=== PATIENT | male | born 1960 | race Caucasian/White ===

== ENCOUNTER 2016-12-20 13:44 | Emergency (ER) | payer OTHER ==
[~2016-12-20] VITALS: Ht 179.1 cm; Wt 90.3 kg
[~2016-12-20 13:44] MED LIST: AMBIEN 10MG10 MG PO; BABY ASPIRIN CH81 MG PO; BACTRIM DS TAB1 EACH PO; BETAPACE80 MG PO; ELIQUIS5 M1 PO; GOOD SENSE ASPI81 M1 PO; KEFLEX500 M1 PO; MAGNESIUM OXID400 M1 PO; MAGNESIUM400 M1 PO; METOPROLOL SUC100 M1 PO; METOPROLOL SUCC50 M1 PO; METOPROLOL TART25 M1 PO; MULTAQ400 M1 PO; TOPROL XL 100100 MG PO; TOPROL XL50 MG PO
[2016-12-20 14:15] LABS: ABSOLUTE BASOPHIL COUNT 0 /CUMM (0.0-0.2); ABSOLUTE EOSINOPHIL COUNT 0.1 /CUMM (0.0-0.7); ABSOLUTE GRANULOCYTE CT 6.9 /CUMM (1.4-6.5); ABSOLUTE LYMPH COUNT 3.5 /CUMM (1.2-3.4); ABSOLUTE MONOCYTE COUNT 0.7 /CUMM (0.10-0.60); BASOPHIL % 0.1 % (0.0-2.0); EOSINOPHIL % 0.5 % (0-5); GRANULOCYTE % 61.9 % (42.2-75.2); HEMATOCRIT 47.4 % (42-52); MEAN CORPUSCULAR HGB 29.8 PG (27.0-31.0); MEAN CORPUSCULAR HGB CONC 33.7 G/DL (33.0-37.0); MEAN CORPUSCULAR VOLUME 88.4 FL (80.0-94.0); MEAN PLATELET VOLUME 8.1 FL (7.4-10.4); PLATELET COUNT 225 /CUMM (130-400); RBC DISTRIBUTION WIDTH 12.9 % (11.5-14.5); RED BLOOD CELL CT 5.35 /CUMM (4.70-6.10); WHITE BLOOD CELL COUNT 11.2 /CUMM (4.8-10.8)
--- NOTE | 2016-12-20 16:02 | ED CARDIAC/CP/PALPITATIONS ---
History of Present Illness General Chief Complaint: Palpitations Stated Complaint: STATES IN A-FIB Source: patient Exam Limitations: no limitations Vital Signs & Intake/Output Vital Signs & Intake/Output Vital Signs Date Time Temp Pulse Resp B/P B/P Pulse O2 O2 Flow FiO2 Mean Ox Delivery Rate 12/20 1917 97.8 96 18 142/89 97 Room Air 12/20 1804 98.6 76 18 135/76 98 Room Air 12/20 1626 97.8 100 20 144/90 97 Room Air 12/20 1359 98.7 122 18 122/83 96 Room Air Allergies Coded Allergies: NO KNOWN ALLERGIES (05/03/16) Reconcile Medications Aspirin (Ecotrin*) 81 MG TABLET.DR 1 TAB PO DAILY HEART/BLOOD (Reported) Magnesium Oxide (Magnesium) 500 MG CAPSULE 1 CAP PO DAILY SUPPLEMENT ( Reported) Metoprolol Tartrate 25 MG TABLET 1 TAB PO BID HEART/BP (Reported) Triage Note: PT STATES THAT HE HAD CARDIAC ABLASION IN AUGUST DUE TO AFIB, STATES THAT FOR THE PAST 30 MINUTES HE FEELS LIKE HIS HEART IS GOING TO JUMP OUT OF HIS CHEST , DENIES CP. SINUS TACH WITH RUN OF PVC'S ON EKG. DENIES SOB Triage Nurses Notes Reviewed? yes Onset: Abrupt Duration: hour(s): (FEW) Timing: multiple episodes today Location: central Activities at Onset: ALCOHOL USE Aspirin Today: no aspirin today Associated Symptoms: CHEST TIGHTNESS HPI: This is a 56-year-old male with history of proximal A. fib status post cardioversion in August by Dr. Jensen who presents to the ER for chief complaint of thinking he might of been in A. fib this point. He admits to drinking 20 beers over the weekend. He states sometimes taking alcohol with him into A. fib. No chest pain but feels tight. He is also monitor for a thoracic aortic aneurysm. Denies hearing short of breath. States he feels better now than when he came into the hospital. Denies any history of alcohol withdrawal symptoms. Past History Travel History Traveled to [place] past 21 day No Medical History Any Pertinent Medical History? 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 No Review of Systems Review of Systems Constitutional: Denies: chills, fever. EENTM: Reports: no symptoms. Respiratory: Denies: cough, short of breath, sputum production. Cardiovascular: Reports: palpitations. Denies: chest pain, peripheral edema. GI: Denies: abdominal pain, diarrhea, nausea, vomiting. Genitourinary: Denies: discharge, dysuria. Musculoskeletal: Reports: no symptoms. Skin: Reports: no symptoms. Neurological/Psychological: Reports: no symptoms. Hematologic/Endocrine: Denies: bruising, bleeding, polyuria, polydipsia. Immunologic/Allergic: Denies: splenectomy. All Other Systems: Reviewed and Negative Physical Exam Physical Exam General Appearance: well developed/nourished, alert, awake, anxious, mild distress Head: atraumatic, normal appearance Eyes: Bilateral: normal appearance, PERRL, EOMI. Ears, Nose, Throat: normal pharynx, hearing grossly normal Neck: normal inspection, supple Respiratory: normal breath sounds, chest non-tender, no respiratory distress Cardiovascular: tachycardia Peripheral Pulses: 2+ radial (R), 2+ radial (L) Gastrointestinal: normal bowel sounds, soft, non-tender Extremities: normal inspection, normal capillary refill, normal range of motion, calf tenderness Neurologic/Psych: no motor/sensory deficits, awake, alert, oriented x 3 Skin: intact, normal color, warm/dry Core Measures ACS in differential dx? Yes ASA ordered for poss ACS? No-ACS ruled out Severe Sepsis Present: No Septic Shock Present: No Progress Differential Diagnosis: atrial fibrillation, pneumothorax, pulmonary embolism, ALCOHOL ABUSE, ALCOHOL WITHDRAWAL Plan of Care: Orders Procedure Date/time Status URINE DRUGS OF ABUSE 12/20 1702 Complete URINALYSIS 12/20 1702 Complete TROPONIN LEVEL 12/20 1403 Complete COMPREHENSIVE METABOLIC PANEL 12/20 1403 Complete CBC WITHOUT DIFFERENTIAL 12/20 1403 Complete EKG 12/20 1345 Active Laboratory Tests 12/20/16 1827: Urine Opiates Screen < 100.00, Methadone Screen < 40, Barbiturate Screen < 60, Ur Phencyclidine Scrn < 6.00, Amphetamines Screen < 100, U Benzodiazepines Scrn < 85, Urine Cocaine Screen < 50, Urine Cannabis Screen < 5.00, Urinalysis LIGHT H, Urine Color YEL, Urine Clarity CLEAR, Urine pH 5.5, Ur Specific Sylvester >= 1.030, Urine Protein TRACE H, Urine Ketones 15 H, Urine Nitrite NEG, Urine Bilirubin NEG, Urine Urobilinogen 0.2, Ur Leukocyte Esterase NEG, Ur Microscopic SEDIMENT EXAMINED, Urine RBC 1-3, Urine WBC RARE, Ur Epithelial Cells RARE, Hyaline Casts 1-3 H, Granular Casts 1-3 H, Urine Mucus FEW, Urine Hemoglobin TRACE-INTACT H, Urine Glucose NEG 12/20/16 1407: Anion Gap 17 H, Estimated GFR > 60, BUN/Creatinine Ratio 15.0, Glucose 87, Calcium 9.2, Total Bilirubin 0.7, AST 36, ALT 79 H, Alkaline Phosphatase 85, Troponin I < 0.01, Total Protein 8.2, Albumin 4.7, Globulin 3.5, Albumin/ Globulin Ratio 1.3, CBC w Diff NO MAN DIFF REQ, RBC 5.35, MCV 88.4, MCH 29.8, RDW 12.9, MPV 8.1, Gran % 61.9, Lymphocytes % 31.0, Monocytes % 6.5, Eosinophils % 0.5, Basophils % 0.1, Absolute Granulocytes 6.9 H, Absolute Lymphocytes 3.5 H, Absolute Monocytes 0.7 H, Absolute Eosinophils 0.1, Absolute Basophils 0, PUBS MCHC 33.7 PATIENT FEELING MUCH BETTER AFTER 2 L IVF. HR IN LOW 90'S. URINALYSIS AFTER FLUIDS NEGATIVE KETONES. NORMAL SP. NO AFIB ON MONITOR. PATIENT EDUCATED TO AVOID EXCESSIVE ALCOHOL INTAKE. PATIENT WILL FOLLOW UP WITH DR ELDER IN THE OFFICE. (BRYSON FALK,PRETTY) Diagnostic Imaging: Viewed by Me: Radiology Read. Discussed w/RAD: Radiology Read. CXR Impression: PATIENT: ROCIO BENEDICT PRESENT AGE: 56 PATIENT ACCOUNT NO: [id number] : 62 LOCATION: [facility] ORDERING PHYSICIAN: PRETTY MASSEY MD SERVICE DATE: 12/20/16 EXAM TYPE: RAD - XRY-PORTABLE CHEST XRAY EXAMINATION: XR PORTABLE CHEST CLINICAL INFORMATION: Chest tightness. Tachycardia. Evaluate mediastinum. COMPARISON: Chest x-ray 05/28/2016. TECHNIQUE : Portable frontal view of the chest was obtained. FINDINGS: The lungs are well- expanded and clear without focal airspace consolidation. No pleural effusions or pneumothoraces are identified. Cardiomediastinal contours are stable. Soft tissues are unremarkable. No acute osseous abnormality is identified. IMPRESSION : No acute pulmonary process. Cardiac mediastinal contours are stable relative to a prior chest x-ray dating back to 05/28/2016. There is a clinical concern for aortic dissection or aortic pathology, recommend correlation with a dedicated CTA of the chest. DICTATED BY: NIA DENNY MD DATE/TIME DICTATED: 12/20/161631 COATING ENGINEER:VEGA DATE/TIME TRANSCRIBED:12/20/161631 CONFIDENTIAL, DO NOT COPY WITHOUT APPROPRIATE AUTHORIZATION. <Electronically signed in Other Vendor System> SIGNED BY: NIA DENNY MD 12/20/161635 Initial ED EKG: SINUS TACHYCARDIA Rhythm Strip: SINUS TACHYCARDIA Departure Departure Disposition: HOME OR SELF CARE Condition: Stable Clinical Impression Primary Impression: Sinus tachycardia Secondary Impressions: Alcohol abuse Referrals: JERROD FALK PhD,LULÚ Merrill Additional Instructions: Continue your regularly prescribed medications. Please avoid excessive alcohol intake. Follow up with Dr. Elder in the office. Please return to the ER should he have any changing or worsening symptoms. Departure Forms: Customer Survey General Discharge Information Critical Care Note Critical Care Note Critical Care Time: non-applicable
--- NOTE | 2016-12-20 16:36 | RADIOLOGY REPORT ---
EXAMINATION: XR PORTABLE CHEST CLINICAL INFORMATION: Chest tightness. Tachycardia. Evaluate mediastinum. COMPARISON: Chest x-ray 05/28/2016. TECHNIQUE: Portable frontal view of the chest was obtained. FINDINGS: The lungs are well-expanded and clear without focal airspace consolidation. No pleural effusions or pneumothoraces are identified. Cardiomediastinal contours are stable. Soft tissues are unremarkable. No acute osseous abnormality is identified. IMPRESSION: No acute pulmonary process. Cardiac mediastinal contours are stable relative to a prior chest x-ray dating back to 05/28/2016. There is a clinical concern for aortic dissection or aortic pathology, recommend correlation with a dedicated CTA of the chest.
[2016-12-20] MEDS ORDERED: MAGNESIUM500 M2 PO (17:06)
[2016-12-20] MEDS ORDERED: ASPIRIN EC81 M1 PO (17:06)
[2016-12-20 19:17] VITALS: BP 142/89
== END 2016-12-20 19:18 ==
LOC: ERH 13:44
PROVIDERS: Emergency Medicine
DX: R00.0 Tachycardia, unspecified (principal); F10.10 Alcohol abuse, uncomplicated; R07.89 Other chest pain
CPT/HCPCS: 80307; 81001; 93005; 93010

== ENCOUNTER 2016-12-22 09:29 | Emergency (ER) | payer OTHER ==
[~2016-12-22] VITALS: Ht 177.8 cm; Wt 90.3 kg
[~2016-12-22 09:29] MED LIST changes: +ASPIRIN EC81 M1 PO; +MAGNESIUM500 M2 PO
--- NOTE | 2016-12-22 09:43 | ED CARDIAC/CP/PALPITATIONS ---
History of Present Illness General Chief Complaint: Palpitations Stated Complaint: ?AFIB Source: patient, family, old records Exam Limitations: no limitations Vital Signs & Intake/Output Vital Signs & Intake/Output Vital Signs Date Time Temp Pulse Resp B/P B/P Pulse O2 O2 Flow FiO2 Mean Ox Delivery Rate 12/22 1143 98.2 92 20 121/79 99 Room Air 12/22 1045 97.8 99 20 119/79 98 Room Air 12/22 0938 97.3 122 20 161/86 97 Room Air Allergies Coded Allergies: NO KNOWN ALLERGIES (05/03/16) Reconcile Medications Aspirin (Ecotrin*) 81 MG TABLET.DR 1 TAB PO DAILY HEART/BLOOD (Reported) Magnesium Oxide (Magnesium) 500 MG CAPSULE 1 CAP PO DAILY SUPPLEMENT ( Reported) Metoprolol Tartrate 25 MG TABLET 1 TAB PO BID HEART/BP (Reported) Triage Note: C/O RAPID HEART BEAT WITH ABDOMEN PULSATING X 15 MINUTES. STATES, "I THINK I AM GOING INTO AFIB". EKG DONE ON ARRIVAL. DENIES CHEST PAIN OR SOB. PT REPORTS HE HAD AN ABALATION PROCEDURE DONE THIS PAST AUGUST, NOT ON BLOOD THINNERS. Triage Nurses Notes Reviewed? yes Onset: Abrupt Duration: minute(s): (15), constant, continues in ED Timing: recent history Quality/Severity: moderate, severe HPI: 56 -year-old male comes into emergency room with complaints of feeling that he may be in A. fib again. He reports that for the past 15 minutes she's been having a racing heart and it feels irregular like and skipping beats. Patient can feel it in his abdomen but denies any chest pain or shortness of breath. Nothing seems to make the symptoms better or worse. Denies any other associated symptoms. (GISELLE BANUELOS) Past History Travel History Traveled to [place] past 21 day No Medical History Any Pertinent Medical History? 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 No (GISELLE BANUELOS) Review of Systems Review of Systems Constitutional: Reports: no symptoms. EENTM: Reports: no symptoms. Respiratory: Reports: no symptoms. Cardiovascular: Reports: see HPI. GI: Reports: no symptoms. Genitourinary: Reports: no symptoms. Musculoskeletal: Reports: no symptoms. Skin: Reports: no symptoms. Neurological/Psychological: Reports: no symptoms. Hematologic/Endocrine: Reports: no symptoms. Immunologic/Allergic: Reports: no symptoms. All Other Systems: Reviewed and Negative (GISELLE BANUELOS) Physical Exam Physical Exam General Appearance: well developed/nourished, alert, awake Head: atraumatic Eyes: Bilateral: normal appearance. Ears, Nose, Throat: normal ENT inspection, hearing grossly normal Neck: normal inspection Respiratory: normal breath sounds, no respiratory distress Cardiovascular: tachycardia (irregular) Gastrointestinal: soft, non-tender Back: normal inspection Extremities: normal inspection, normal range of motion, no edema Neurologic/Psych: awake, alert, oriented x 3, normal gait Skin: intact, normal color Core Measures ACS in differential dx? No Severe Sepsis Present: No Septic Shock Present: No (GISELLE BANUELOS) Progress Differential Diagnosis: AMI, aortic dissection, atrial fibrillation, cholecystitis, hyperkalemia, hypovolemia, hyperthyroid, hyperventilation, myocarditis, pancreatitis, pericarditis, pulmonary embolism, PUD/GERD, PVCs/PACs , unstable angina, V-fib/V-Tach, WPW syndrome Plan of Care: Orders Procedure Date/time Status Heart Healthy Diet 12/22 D Active EKG 12/22 0957 Active Add-on Test (ER Only) 12/22 0943 Active MAGNESIUM 12/23 939 Complete THYROID STIMULATING HORMONE 12/22 938 Complete TROPONIN LEVEL 12/22 938 Complete PARTIAL THROMBOPLASTIN TIME 12/22 938 Complete PROTHROMBIN TIME 12/22 938 Complete COMPREHENSIVE METABOLIC PANEL 12/22 938 Complete CBC WITHOUT DIFFERENTIAL 12/22 938 Complete EKG 12/22 0930 Active Laboratory Tests 12/22/16 0940: Anion Gap 11, Estimated GFR > 60, BUN/Creatinine Ratio 19.0, Glucose 134 H, Calcium 8.9, Magnesium 2.0, Total Bilirubin 0.8, AST 21, ALT 55, Alkaline Phosphatase 81, Troponin I < 0.01, Total Protein 7.5, Albumin 4.3, Globulin 3.2, Albumin/Globulin Ratio 1.3, TSH 1.500, PT 11.6, INR 1.11, APTT 36, CBC w Diff NO MAN DIFF REQ, RBC 5.05, MCV 88.0, MCH 30.0, RDW 12.5, MPV 8.0, Gran % 62.1, Lymphocytes % 30.8, Monocytes % 5.6, Eosinophils % 0.8, Basophils % 0.7, Absolute Granulocytes 4.6, Absolute Lymphocytes 2.3, Absolute Monocytes 0.4, Absolute Eosinophils 0.1, Absolute Basophils 0.1, PUBS MCHC 34.0 Initial ED EKG: rate (140), AFIB Repeat EKG: changed (NSR, rate 97) Comments: 12/22/2016 10:52:[address] Blank on the phone. Patient spontaneously converted back into normal sinus rhythm. Repeat EKG was performed. Dr. Blank wants to come in to evaluate the patient. Pepending on his evaluation. 12/22/2016 1:50:24 PM Patient is continuing to remain in normal sinus rhythm on the monitor. Patient was seen by Dr. Blank. He prescribed an antiarrhythmic for the patient. He will be discharged with no anticoagulants and will continue on 81 mg aspirin tablet. case discussed with dr park. (SARAH GOMESLOHRVILLE) Departure Departure Disposition: HOME OR SELF CARE Condition: Stable Clinical Impression Primary Impression: Paroxysmal a-fib Referrals: PATIENT HAS NO PRIMARY CARE DR (PCP/Family) Additional Instructions: Take medication that was prescribed to you by Dr. Blank. Follow-up with him in the office. Return if any other concerns/worsening of symptoms. Please go over all results of today's visit with your primary care doctor. Contact your primary care doctor to let them know you were here in the emergency room. There may be nonspecific findings which may not be related to your visit today here in the emergency room but may require further evaluation and chronic monitoring by your primary care doctor. If you had a laceration today the chance of foreign body always remains. You should follow-up with your primary care doctor for recheck in 3-5 days for a wound check. If you had an x-ray done there is a chance that a fracture could have been missed on initial read and you should follow-up with your primary care doctor for repeat x-rays if symptoms persist. If your blood pressure was elevated here in the emergency room please have rechecked by her primary care doctor within the next 48 hours by your primary care doctor. If you were prescribed a narcotic here in the emergency room or any type of controlled substances you're not allowed to drive while taking this medication or operate any type of heavy machinery. Narcotics can make you feel lightheaded dizziness nausea and can cause constipation. You may need to pick up worker a stool softener. Thank you for choosing [facility] emergency room. Please return to the emergency room immediately if you have any other concerns worsening of symptoms. 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 I have also reviewed all the pertinent lab results and diagnostic results. I agree with the findings and the plan of care as documented in the PA's/EXTRACTOR OPERATOR SOLVENT PROCESS's documentation. [] I have reviewed the ED Record and agree with the PA's/EXTRACTOR OPERATOR SOLVENT PROCESS's documentation. [] Additions or exceptions (if any) to the PAs/EXTRACTOR OPERATOR SOLVENT PROCESS's note and plan are summarized below: [] (RENITA FALK,ARTURO) Critical Care Note Critical Care Note Critical Care Time: non-applicable (GISELLE BANUELOS)
[2016-12-22 09:46] LABS: ABSOLUTE BASOPHIL COUNT 0.1 /CUMM (0.0-0.2); ABSOLUTE EOSINOPHIL COUNT 0.1 /CUMM (0.0-0.7); ABSOLUTE GRANULOCYTE CT 4.6 /CUMM (1.4-6.5); ABSOLUTE LYMPH COUNT 2.3 /CUMM (1.2-3.4); ABSOLUTE MONOCYTE COUNT 0.4 /CUMM (0.10-0.60); BASOPHIL % 0.7 % (0.0-2.0); EOSINOPHIL % 0.8 % (0-5); GRANULOCYTE % 62.1 % (42.2-75.2); HEMATOCRIT 44.4 % (42-52); PLATELET COUNT 193 /CUMM (130-400); RBC DISTRIBUTION WIDTH 12.5 % (11.5-14.5); RED BLOOD CELL CT 5.05 /CUMM (4.70-6.10); WHITE BLOOD CELL COUNT 7.4 /CUMM (4.8-10.8)
[2016-12-22 09:56] LABS: PT 11.6 SEC (9.4-12.5); PTT 36 SEC (25-37)
[2016-12-22 11:43] VITALS: BP 121/79
--- NOTE | 2016-12-22 12:25 | Cons- Cardiology ---
General Information and HPI Consulting Request Date of Consult: 12/22/16 Requested By: ER History of Present Illness: Kamar is a 56 year old male with history of hypertension and paroxysmal atrial fibrillation. Since 2013 he has had multiple episodes of atrial fibrillation with rapid ventricular rate depite attempts at medical therapy with bothe Sotolol and Multaq. In consideration of the above the patient recently underwent an atrial fibrillation ablation procedure. This took place in [facility], and since he was doing well, his Multaq was discontinued. Over the past week this patient has had two episodes of recurrent atrial fibrillation with rapid heart rate. In the ER he spontaneously converted back into a sinus rhythm. When in atrial fibrillation he feels palpitations with mild shortness of breath and lightheadedness. At baseline, this patient had frequent episodes of A. Fib of at least twice a month, if not more. The episodes typically last for about 30 minutes before spontaneously converting back into a NSR. Cardiac workup has included an echocardiogram showing an EF of 55% with impaired LV relaxation and trace MR and TR. The left atrial size is normal. The patient does have an mildly enlarged ascending aorta of 4.6cm by CT scan. A Holter monitor showed some brief runs of paroxysmal atrial fibrillation despite being on Sotolol. The episodes typically occur in the vamp seamer and tend to be short lived. He also demonstrated 171 ventricular ectopic beats and 39 supraventricular ectopic beats. This patient does carry a history of remote alcohol and cocaine abuse but these indiscretions were not related to this current event since he has not had either in multiple years. Allergies/Medications Allergies: Coded Allergies: NO KNOWN ALLERGIES (05/03/16) Home Med List: Aspirin (Ecotrin*) 81 MG TABLET.DR 1 TAB PO DAILY HEART/BLOOD (Reported) Magnesium Oxide (Magnesium) 500 MG CAPSULE 1 CAP PO DAILY SUPPLEMENT ( Reported) Metoprolol Tartrate 25 MG TABLET 1 TAB PO BID HEART/BP (Reported) Review of Systems Review of Systems: A twelve point review of systems is unremarkable. 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 [facility] Services at Home: None ETOH Use: denies use Exam & Diagnostic Data Vital Signs and I&O Vital Signs Date Time Temp Pulse Resp B/P B/P Pulse O2 O2 Flow FiO2 Mean Ox Delivery Rate 12/22 1143 98.2 92 20 121/79 99 Room Air 12/22 1045 97.8 99 20 119/79 98 Room Air 12/22 0938 97.3 122 20 161/86 97 Room Air Intake & Output 12/22 1600 12/22 0800 12/22 0000 12/21 1600 12/21 0800 12/21 0000 Intake Total 10 Output Total Balance 10 Intake, IV 10 Patient 199 lb Weight Weight Reported by Patient Measurement Method Physical Exam: General: WD/ WN male in NAD; alert and oriented x 3 HEENT: NC/ AT, PERRL, EOMI Neck: no JVD, no carotid bruit Heart: RRR w/o murmur Lungs: clear bilaterally ABdomen: soft, NT, +ve bowel sounds Extremities: no edema Assessment/Plan Assessment/Plan * This patient has recurrent, repeated episodes of atrial fibrillation with rapid heart rate since his Multaq medication was discontinued. We will restart Multaq at 400mg PO BID to help achieve better control. It is noted that this drug never gave perfect control in the past when he used it but hopefully this situation will be improved now that he is s/p his ablation. We will need to monitor him expectantly for this. The patient can feel his bouts of atrial fibrillation very well when they occur. He should remain on aspirin. He has also been advised to avoid alcohol. This patient can be discharged with follow up in the office planned in one month. Consult Acknowledgment - Thank you for your consult request.
== END 2016-12-22 12:17 ==
LOC: ERH 09:29
PROVIDERS: Physician Assistant Medical
DX: I48.0 Paroxysmal atrial fibrillation (principal)
CPT/HCPCS: 93005; 93010

== ENCOUNTER 2017-01-03 13:08 | Emergency (ER) | payer OTHER ==
[~2017-01-03] VITALS: Ht 177.8 cm; Wt 90.7 kg
[2017-01-03 13:41] LABS: ABSOLUTE BASOPHIL COUNT 0 /CUMM (0.0-0.2); ABSOLUTE EOSINOPHIL COUNT 0.1 /CUMM (0.0-0.7); ABSOLUTE GRANULOCYTE CT 4.8 /CUMM (1.4-6.5); ABSOLUTE MONOCYTE COUNT 0.5 /CUMM (0.10-0.60); BASOPHIL % 0.4 % (0.0-2.0); EOSINOPHIL % 1.7 % (0-5); GRANULOCYTE % 56.4 % (42.2-75.2); HEMATOCRIT 43.3 % (42-52); MEAN CORPUSCULAR HGB 30.2 PG (27.0-31.0); MEAN CORPUSCULAR HGB CONC 33.9 G/DL (33.0-37.0); MEAN CORPUSCULAR VOLUME 89.1 FL (80.0-94.0); MEAN PLATELET VOLUME 8.4 FL (7.4-10.4); PLATELET COUNT 204 /CUMM (130-400); RBC DISTRIBUTION WIDTH 12.9 % (11.5-14.5); RED BLOOD CELL CT 4.86 /CUMM (4.70-6.10); WHITE BLOOD CELL COUNT 8.5 /CUMM (4.8-10.8)
[2017-01-03 13:49] LABS: PT 11.3 SEC (9.4-12.5); PTT 34 SEC (25-37)
--- NOTE | 2017-01-03 14:41 | RADIOLOGY REPORT ---
EXAMINATION: XR CHEST CLINICAL INFORMATION: Palpitations. COMPARISON: Chest done on 12/20/2016. TECHNIQUE: 2 views of the chest were obtained. FINDINGS: Both lung villegas are symmetrically expanded and appear clear. The cardiomediastinal silhouette is within normal limits. There is no pleural effusion present. The visualized upper abdomen. No significant change since prior study. IMPRESSION: No acute cardiopulmonary disease.
[2017-01-03] MEDS ORDERED: MULTAQ400 M1 PO (15:44)
--- NOTE | 2017-01-03 16:13 | ED GENERAL ADULT ---
History of Present Illness General Chief Complaint: General Adult Stated Complaint: "I AM IN A. FIB" Source: patient Exam Limitations: no limitations Vital Signs & Intake/Output Vital Signs & Intake/Output Vital Signs Date Time Temp Pulse Resp B/P B/P Pulse O2 O2 Flow FiO2 Mean Ox Delivery Rate 01/03 193 98.4 97 18 130/75 97 Room Air 01/03 1556 98.2 100 17 128/76 99 Room Air 01/03 1316 98.0 115 16 126/85 98 Room Air Room Air Allergies Coded Allergies: No Known Allergies (01/03/17) Reconcile Medications Aspirin (Ecotrin*) 81 MG TABLET.DR 1 TAB PO DAILY HEART/BLOOD (Reported) Dronedarone HCl (Multaq) 400 MG TABLET 1 TAB PO BID HEART (Reported) Magnesium Oxide (Magnesium) 500 MG CAPSULE 1 CAP PO DAILY SUPPLEMENT ( Reported) Metoprolol Tartrate 25 MG TABLET 1 TAB PO BID HEART/BP (Reported) Sotalol HCl (Sotalol) 80 MG TABLET 1 TAB PO BID a-fib Triage Note: PT TO TRIAGE WITH A FEELING A PALPATIONS AND HEART RACING RIGHT AFTER LUNCH. PT HAS A HX OF AFIB AND HAD AN ABLATION IN AUG. PT DENIES CHEST OR SOB Triage Nurses Notes Reviewed? yes HPI: 56-year-old male with a history of A. fib, status post ablation in August 2016, hypertension, thoracic aortic aneurysm presenting with heart palpitations around noon today while eating lunch. Denies diaphoresis, nausea, vomiting, lightheadedness, dizziness, chest pain, shortness of breath. Palpitations have since resolved and he is currently asymptomatic. Followed by managed on multaq and metoptralol, which he reports med compliance with. Denies any recent fevers. (ADOLFO DEVI PA-C) Past History Travel History Traveled to [place] past 21 day No Medical History Any Pertinent Medical History? 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 No (ADOLFO DEVI PA-C) Review of Systems Review of Systems Constitutional: Denies: chills, diaphoresis, fever, malaise, weakness. Respiratory: Denies: cough, short of breath, sputum production, wheezing. Cardiovascular: Reports: palpitations. Denies: chest pain, syncope. GI: Denies: abdominal pain, diarrhea, nausea, vomiting. Genitourinary: Reports: no symptoms. Musculoskeletal: Reports: no symptoms. Skin: Reports: no symptoms. Neurological/Psychological: Reports: other (light headed/dizziness). Denies: numbness, paresthesia, tingling, tremors, weakness. (ADOLFO DEVI PA-C) Physical Exam Physical Exam General Appearance: well developed/nourished, no apparent distress, comfortable Head: atraumatic Ears, Nose, Throat: normal ENT inspection Respiratory: normal breath sounds, lungs clear Cardiovascular: regular rate/rhythm Gastrointestinal: soft, non-tender Extremities: no edema Core Measures ACS in differential dx? Yes CVA/TIA Diagnosis: No Severe Sepsis Present: No Septic Shock Present: No (SHANDRA ROMAN,ADOLFO) Progress Differential Diagnoses I considered the following diagnoses in my evaluation of the patient: [A. fib versus a relatively abnormality versus infection versus anemia] Plan of Care: Orders Procedure Date/time Status EKG 01/03 1618 Active Add-on Test (ER Only) 01/03 1612 Active PHOSPHORUS 01/03 1329 Complete MAGNESIUM 01/03 1329 Complete TROPONIN LEVEL 01/03 1318 Complete PARTIAL THROMBOPLASTIN TIME 01/03 1318 Complete PROTHROMBIN TIME 01/03 1318 Complete COMPREHENSIVE METABOLIC PANEL 01/03 1318 Complete CBC WITHOUT DIFFERENTIAL 01/03 1318 Complete EKG 01/03 1308 Active Laboratory Tests 01/03/17 1329: Anion Gap 12, Estimated GFR > 60, BUN/Creatinine Ratio 14.5, Glucose 84, Calcium 8.9, Phosphorus 3.8, Magnesium 2.1, Total Bilirubin 0.4, AST 15 L, ALT 34, Alkaline Phosphatase 62, Troponin I < 0.01, Total Protein 7.4, Albumin 4.2, Globulin 3.2, Albumin/Globulin Ratio 1.3, PT 11.3, INR 1.08, APTT 34, CBC w Diff NO MAN DIFF REQ, RBC 4.86, MCV 89.1, MCH 30.2, RDW 12.9, MPV 8.4, Gran % 56.4, Lymphocytes % 35.0, Monocytes % 6.5, Eosinophils % 1.7, Basophils % 0.4, Absolute Granulocytes 4.8, Absolute Lymphocytes 3.0, Absolute Monocytes 0.5, Absolute Eosinophils 0.1, Absolute Basophils 0, PUBS MCHC 33.9 Initial EKG showed A. fib rhythm with rate in the low 100s. Repeat EKG shows normal sinus rhythm with rate in the 80s. X-ray and labs unremarkable. Pt seen by Dr. Parra. Instructed to D/C multaq, and begin sotalol instead. Given rx for 90 supply and will f/u with Dr. Blank and Dr. Gentile. (SHANDRA ROMAN,ADOLFO) Initial ED EKG: AFIB (rate 107) Repeat EKG: changed (NSR at 82) (ADOLFO DEVI PA-C) Departure Departure Disposition: HOME OR SELF CARE Condition: Stable Clinical Impression Primary Impression: A-fib Referrals: PATIENT HAS NO PRIMARY CARE DR (PCP/Family) Additional Instructions: STOP taking multaq immediately. BEGIN taking sotalol 80mg twice daily. Follow up with both Dr. Blank and Dr. Gentile for re-evaluation. Return to the ED for any new or worsening symptoms. Departure Forms: Customer Survey General Discharge Information Prescriptions: Current Visit Scripts Sotalol HCl (Sotalol) 1 TAB PO BID #90 TAB (ADOLFO DEVI PA-C) PA/STITCHER STANDARD MACHINE Co-Sign Statement Statement: ED Attending supervision documentation- [] I saw and evaluated the patient. I have also reviewed all the pertinent lab results and diagnostic results. I agree with the findings and the plan of care as documented in the PA's/STITCHER STANDARD MACHINE's documentation. [X] I have reviewed the ED Record and agree with the PA's/STITCHER STANDARD MACHINE's documentation. [] Additions or exceptions (if any) to the PAs/STITCHER STANDARD MACHINE's note and plan are summarized below: [] (BRYSON FALK,PRETTY) Critical Care Note Critical Care Note Critical Care Time: non-applicable (SHANDRA ROMAN,ADOLFO)
[2017-01-03] MEDS ORDERED: SOTALOL80 M1 PO (19:21)
[2017-01-03 19:33] VITALS: BP 130/75
--- NOTE | 2017-01-03 19:59 | Cons- Cardiology ---
General Information and HPI Consulting Request Date of Consult: 01/03/17 Requested By: Kenny Blank MD Reason for Consult: Paroxysmal atrial fibrillation Source of Information: patient, old records Exam Limitations: no limitations History of Present Illness: I was asked to see this patient in regards to recurrent paroxysmal atrial fibrillation. This patient is well-known to me. Mr. Sin is a very pleasant 56-year-old man with a history of hypertension and aortic dilatation. He has a past history of alcohol and cocaine use stopped a few years ago. Recently he has troubles with paroxysmal atrial fibrillation. He also developed symptomatic atrial premature beats with aberrant conduction. Because of recurrent A. fib he was admitted for the initiation of sotalol on 01/22/2016. He has been cared for by Dr. Blank. An echocardiogram done on 01/22/2016 showed aortic dilatation at 4.1 cm but a normal left atrial size of 3.3 cm. Because of recurrent bouts of A. fib he was switched from sotalol to Multaq but because of persistent bouts of paroxysmal A. fib we scheduled an ablation. An MRI scan done 06/24/2017 showed ascending aortic aneurysm at 4.2 x 4.2 cm. He underwent an atrial fibrillation ablation on 09/05/2016. This consisted of a pulmonary vein isolation procedure and posterior wall isolation. We saw him in the office on 10/06/2016 and he was having occasional brief palpitations but overall felt well Subsequently he has been in the [facility] ER 3 times. The first time apparently was for sinus tachycardia. Subsequent only however he did have documented atrial fibrillation and was restarted on Multaq 400 mg twice a day. Today he again had a bout of atrial fibrillation. He notes that the A. fib is not as symptomatically rapid as previously. His last bouts of A. fib were provoked by eating. He came to the ER and ultimately converted within an hour to to sinus rhythm. He currently feels well. Overall he essentially felt better status post ablation but again has had 2 episodes of paroxysmal atrial fibrillation in each time presents rapidly to the ER. Allergies/Medications Allergies: Coded Allergies: No Known Allergies (01/03/17) Home Med List: Aspirin (Ecotrin*) 81 MG TABLET.DR 1 TAB PO DAILY HEART/BLOOD (Reported) Dronedarone HCl (Multaq) 400 MG TABLET 1 TAB PO BID HEART (Reported) Magnesium Oxide (Magnesium) 500 MG CAPSULE 1 CAP PO DAILY SUPPLEMENT ( Reported) Metoprolol Tartrate 25 MG TABLET 1 TAB PO BID HEART/BP (Reported) Sotalol HCl (Sotalol) 80 MG TABLET 1 TAB PO BID a-fib Review of Systems Review of Systems Cardiovascular: Reports: palpitations. 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 landlord Services at Home: None ETOH Use: denies use Illicit Drug Use: denies illicit drug use Exam & Diagnostic Data Vital Signs and I&O Vital Signs Date Time Temp Pulse Resp B/P B/P Pulse O2 O2 Flow FiO2 Mean Ox Delivery Rate 01/03 1933 98.4 97 18 130/75 97 Room Air 01/03 1556 98.2 100 17 128/76 99 Room Air 01/03 1316 98.0 115 16 126/85 98 Room Air Room Air Intake & Output 01/03 1600 01/03 0800 01/03 0000 01/02 1600 01/02 0800 01/02 0000 Intake Total Output Total Balance Patient 200 lb Weight Physical Exam: General: Well-appearing in no distress For vital signs, see above. Head: Normocephalic/atraumatic Eyes: No xanthelasma or scleral icterus Mouth: Moist mucous membranes without pallor or cyanosis Neck: No jugular venous distention, carotid bruits, thyromegaly Thorax/lungs: No chest deformity, lungs clear Cardiac: Normal S1, S2 without S3, S4 or murmurs. Abdomen: No tenderness or masses Extremities: No cyanosis, clubbing, or edema Neruo: Grossly nonfocal Skin: No major rashes Psychiatric: Normal mood and affect Assessment/Plan Assessment/Plan My assessment is that Mr. Sin has had 2 episodes of documented atrial fibrillation occurring after ablation. He is definitely symptomatic. He is definitely better than he was pre-ablation. At this point as sotalol is oftentimes more effective than Multaq and he has tolerated this medication in the past we will stop his Multaq and begin sotalol 80 mg twice a day. He will stay on his metoprolol 25 mg twice a day for both rate control and his aortic aneurysm. As he likely will have more bouts of A. fib we will tentatively begin to schedule an ablation in March or April. He does understand that ablation is nowhere near 100% successful. He is actually better than before his ablation. In the meantime we will see him in the office within the next month or so to see how he is doing. He was instructed that if he develops recurrent A. fib he does not need to murillo to the ER. He will begin to take Eliquis and we will add Cardizem 60 mg every 6 hours for rate control at home. He does realize that he this is not a serious problem and he does feel more comfortable staying at home in the future. Copies To: FARIBA FALK,DILLAN Rodriguez; JERROD FALK PhD,LULÚ Merrill Consult Acknowledgment - Thank you for your consult request.
== END 2017-01-03 19:31 ==
LOC: ERH 13:08
PROVIDERS: Emergency Medicine
DX: I48.91 Unspecified atrial fibrillation (principal)
CPT/HCPCS: 93005; 93010

== ENCOUNTER 2018-03-08 18:06 | Emergency (ER) | payer OTHER ==
[~2018-03-08 18:06] MED LIST changes: +SOTALOL80 M1 PO
--- NOTE | 2018-03-08 19:06 | ED UPPER/LOWER EXTREMITY COMPL ---
History of Present Illness General Chief Complaint: Lower Extremity Problems Stated Complaint: LFT LEG SWELLIN AND PAIN Source: patient Exam Limitations: no limitations Vital Signs & Intake/Output Vital Signs & Intake/Output Vital Signs Date Time Temp Pulse Resp B/P B/P Pulse O2 O2 Flow FiO2 Mean Ox Delivery Rate 03/08 2043 Room Air 03/08 2043 98.3 88 16 126/85 97 Room Air 03/08 181 98.2 88 16 130/89 96 Room Air Allergies Coded Allergies: No Known Allergies (01/03/17) Reconcile Medications Apixaban (Eliquis) 5 MG TABLET 1 TAB PO BID BLOOD THINNER Dronedarone HCl (Multaq) 400 MG TABLET 1 TAB PO BID HEART HEALTH Magnesium Oxide (Magnesium) 500 MG CAPSULE 1 CAP PO DAILY SUPPLEMENT ( Reported) Metoprolol Tartrate 25 MG TABLET 1 TAB PO BID HEART/BP (Reported) Triage Note: PT TO ED WITH CONCERN FOR SWELLING TO LEFT KNEE AREA NOTICED TODAY. TAKES ELIQUIS FOR AFIB. NO SWELLING APPRECIATED IN TRIAGE. NO REDNESS NOTED. SMALL BRUISE NOTICED TO INSIDE OF LEFT KNEE, PT BELIEVES HE BUMPED INTO SOMETHING AT WORK. Triage Nurses Notes Reviewed? yes Onset: Abrupt Duration: day(s): Timing: recent history Severity: mild, moderate Pain/Injury Location: Left: Leg. HPI: 57-year-old male comes into the emergency room for left leg pain and swelling. Patient reports that he noticed a swelling today. He has some pain to his left calf region. He denies any fever chills. Patient is on oral anticoagulants for history of A. fib. He is on eliquis. (Andrez Martinez) Past History Travel History Traveled to [place] past 21 day No Medical History Any Pertinent Medical History? 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 No (Andrez Martinez) Review of Systems Review of Systems Constitutional: Reports: no symptoms. EENTM: Reports: no symptoms. Respiratory: Reports: no symptoms. Cardiovascular: Reports: no symptoms. Gastrointestinal/Abdominal: Reports: no symptoms. Genitourinary: Reports: no symptoms. Musculoskeletal: Reports: see HPI. Skin: Reports: see HPI. Neurological/Psychological: Reports: no symptoms. Hematologic/Endocrine: Reports: no symptoms. Immunological: Reports: no symptoms. All Other Systems: Reviewed and Negative (Andrez Martinez) Physical Exam Physical Exam General Appearance: well developed/nourished, mild distress Head: atraumatic Eyes: Bilateral: normal appearance. Ears, Nose, Throat: normal ENT inspection, hearing grossly normal Neck: normal inspection Cardiovascular/Respiratory: no respiratory distress Back: normal inspection Leg Left: no swelling appreciated, no erythema, no pedal edema, varicose veins left posterior calf, Neurologic/Tendon: normal sensation, normal motor functions, normal tendon functions, responds to pain, no evidence tendon injury, no pulse deficit Skin: intact, normal color, warm/dry (Andrez Martinez) Progress Differential Diagnosis: cellulitis, dislocation, DVT, fracture, varicose veins, bakers cyst Plan of Care: Orders Procedure Date/time Status US-UNILATERAL VENOUS DOPPLER 03/08 1818 Active Diagnostic Imaging: Viewed by Me: Ultrasound. Discussed w/RAD: Ultrasound. Radiology Impression: PATIENT: ROCIO BENEDICT PRESENT AGE: 57 PATIENT ACCOUNT NO: [id number] : 62 LOCATION: [facility] ORDERING PHYSICIAN: Andrez GOMES SERVICE DATE: 03/08/18 EXAM TYPE: US - US -UNILATERAL VENOUS DOPPLER EXAMINATION: US TRIPLEX LOWER EXTREMITY, LEFT CLINICAL INFORMATION: Edema. COMPARISON: None TECHNIQUE: Color-flow triplex imaging with spectral analysis and compression Doppler were performed on the lower extremity. FINDINGS: Respiratory variation, normal compression and augmented flow are noted throughout the lower extremity. The visualized common femoral vein, superficial femoral vein, profunda femoral vein, popliteal vein and midcalf peroneal and posterior tibial venous segments show no evidence of deep venous thrombosis. There is no Hawley's cyst. IMPRESSION: No evidence of deep venous thrombosis involving the lower extremity. DICTATED BY: Jadon Richardson MD DATE/TIME DICTATED:03/08/181953 TENONER OPERATOR:VEGA DATE/TIME TRANSCRIBED:03/08/181953 CONFIDENTIAL, DO NOT COPY WITHOUT APPROPRIATE AUTHORIZATION. <Electronically signed in Other Vendor System> SIGNED BY: Jadon Richardson MD 03/08/181958 (Andrez Martinez) Departure Departure Disposition: HOME OR SELF CARE Condition: Stable Clinical Impression Primary Impression: Left leg swelling Secondary Impressions: Varicose veins of left lower extremity Referrals: Patient Has No Primary Care Dr (PCP/Family) Additional Instructions: Return if any other concerns worsening symptoms. Please go over all results of today's visit with your primary care doctor. Contact your primary care doctor to let them know you were here in the emergency room. There may be nonspecific findings which may not be related to your visit today here in the emergency room but may require further evaluation and chronic monitoring by your primary care doctor. If you had a laceration today the chance of foreign body always remains. You should follow-up with your primary care doctor for recheck in 3-5 days for a wound check. If you had an x-ray done there is a chance that a fracture could have been missed on initial read and you should follow-up with your primary care doctor for repeat x-rays if symptoms persist. If your blood pressure was elevated here in the emergency room please have rechecked by [facility] primary care doctor within the next 48. If you were prescribed a narcotic here in the emergency room or any type of controlled substances you're not allowed to drive while taking this medication or operate any type of heavy machinery. Narcotics can make you feel lightheaded dizziness nausea and can cause constipation. You may need to seed cone picker a stool softener. Thank you for choosing [facility] emergency room. Please return to the emergency room immediately if you have any other concerns worsening of symptoms. Departure Forms: Customer Survey General Discharge Information (Andrez Martinez) PA/FACULTY ADMINISTRATOR Co-Sign Statement Statement: ED Attending supervision documentation- I saw and evaluated the patient. I have also reviewed all the pertinent lab results and diagnostic results. I agree with the findings and the plan of care as documented in the PA's/FACULTY ADMINISTRATOR's documentation. x I have reviewed the ED Record and agree with the PA's/FACULTY ADMINISTRATOR's documentation. [] Additions or exceptions (if any) to the PAs/FACULTY ADMINISTRATOR's note and plan are summarized below: [] (Georgia FALK,Alexys)
--- NOTE | 2018-03-08 19:59 | ULTRASOUND REPORT ---
EXAMINATION: US TRIPLEX LOWER EXTREMITY, LEFT CLINICAL INFORMATION: Edema. COMPARISON: None TECHNIQUE: Color-flow triplex imaging with spectral analysis and compression Doppler were performed on the lower extremity. FINDINGS: Respiratory variation, normal compression and augmented flow are noted throughout the lower extremity. The visualized common femoral vein, superficial femoral vein, profunda femoral vein, popliteal vein and midcalf peroneal and posterior tibial venous segments show no evidence of deep venous thrombosis. There is no Hawley's cyst. IMPRESSION: No evidence of deep venous thrombosis involving the lower extremity.
[2018-03-08 20:43] VITALS: BP 126/85
== END 2018-03-08 21:02 ==
LOC: ERH 18:06
DX: M79.89 Other specified soft tissue disorders (principal); I83.90 Asymptomatic varicose veins of unspecified lower extremity